=== PATIENT | female | born 2000 | race Caucasian/White ===

== ENCOUNTER 2019-09-18 23:37 | Emergency (ER) | payer OTHER ==
[~2019-09-18] VITALS: Ht 170.1 cm; Wt 121.6 kg
[~2019-09-18 23:37] MED LIST: AUGMENTIN 875 M1 TAB PO; CLARITIN10 MG PO
== END 2019-09-19 00:39 | disposition left against medical advice (07) ==
LOC: ED 23:37
DX: R10.9 Unspecified abdominal pain (principal); M54.5 Low back pain; Z53.21 Procedure and treatment not carried out due to patient leaving prior to being seen by health care provider

== ENCOUNTER 2019-10-15 14:55 | Emergency (ER) | payer OTHER | END 2019-10-15 16:00 | disposition home or self-care (01) | LOC: ED 14:55 | DX: S61.011A Laceration without foreign body of right thumb without damage to nail, initial encounter (principal); J45.909 Unspecified asthma, uncomplicated; F17.200 Nicotine dependence, unspecified, uncomplicated; Z88.8 Allergy status to other drugs, medicaments and biological substances; W01.0XXA Fall on same level from slipping, tripping and stumbling without subsequent striking against object, initial encounter; Y93.89 Activity, other specified; Y92.89 Other specified places as the place of occurrence of the external cause; Y99.8 Other external cause status ==

== ENCOUNTER 2022-09-16 07:29 | Emergency (ER) | payer OTHER ==
[~2022-09-16] VITALS: Ht 170.1 cm; Wt 124.7 kg
[2022-09-16] MEDS ORDERED: NYST SUSP PO (08:08)
== END 2022-09-16 08:19 | disposition home or self-care (01) ==
LOC: ED 07:29
DX: R68.2 Dry mouth, unspecified (principal); B37.0 Candidal stomatitis; J45.909 Unspecified asthma, uncomplicated

== ENCOUNTER 2023-03-15 02:40 | Emergency (ER) | payer OTHER ==
[~2023-03-15] VITALS: Ht 172.7 cm; Wt 124.7 kg
[~2023-03-15 02:40] MED LIST changes: +NYST SUSP PO
[2023-03-15 03:23] LABS: BASO % 0.5 % (0.0-1.0); EOS # 0.1 10*3/uL (0.0-0.4); EOS % 0.8 % (1.0-4.0); HEMATOCRIT 41.6 % (37.0-47.0); LYMPH % 27.1 % (27.0-41.0); MEAN CELL VOLUME 84.9 fl (81.0-99.0); MEAN CORPUSCULAR HGB 25.9 pg (27.0-31.0); MEAN CORPUSCULAR HGB CONC 30.5 g/dl (33.0-37.0); MEAN PLATELET VOLUME 9.3 fl (9.6-12.3); MONO # 0.3 10*3/uL (0.1-1.0); MONO % 3.7 % (3.0-9.0); NEUT % 67.8 % (47.0-73.0); PLATELET COUNT AUTOMATED 270 10*3/uL (130-400); WHITE BLOOD COUNT 7.4 10*3/uL (4.8-10.8)
[2023-03-15 03:39] LABS: ALKALINE PHOSPHATASE 80 U/L (46-116); CHLORIDE 110 mmol/L (98-107); POTASSIUM 3.6 mmol/L (3.4-5.1); SGPT/ALT 13 U/L (5-49); TOTAL PROTEIN 7.9 gm/dL (6.0-8.0)
[2023-03-15 03:40] LABS: BUN < 5 mg/dl (9-23)
[2023-03-15] MEDS ORDERED: WELLBUTRIN SR150 MG PO (05:13)
== END 2023-03-15 06:23 | disposition short-term general hospital (02) ==
LOC: ED 02:40
PROVIDERS: Emergency Medicine
DX: F10.129 Alcohol abuse with intoxication, unspecified (principal); S14.109A Unspecified injury at unspecified level of cervical spinal cord, initial encounter; R45.851 Suicidal ideations; J45.909 Unspecified asthma, uncomplicated; Z79.899 Other long term (current) drug therapy; Y90.7 Blood alcohol level of 200-239 mg/100 ml; V49.9XXA Car occupant (driver) (passenger) injured in unspecified traffic accident, initial encounter; Y93.89 Activity, other specified; Y92.410 Unspecified street and highway as the place of occurrence of the external cause; Y99.8 Other external cause status

== ENCOUNTER 2023-08-09 12:06 | Emergency (ER) | payer OTHER ==
[~2023-08-09 12:06] MED LIST changes: +WELLBUTRIN SR150 MG PO
== END 2023-08-09 13:20 | disposition left against medical advice (07) ==
LOC: ED 12:06
DX: R30.9 Painful micturition, unspecified (principal); Z53.21 Procedure and treatment not carried out due to patient leaving prior to being seen by health care provider

== ENCOUNTER 2023-10-27 15:44 | Emergency (ER) | payer OTHER ==
[~2023-10-27] VITALS: Ht 170.1 cm; Wt 108.9 kg
[2023-10-27 16:12] LABS: BASO % 0.4 % (0.0-1.0); EOS # 0.1 10*3/uL (0.0-0.4); EOS % 0.6 % (1.0-4.0); HEMATOCRIT 38.8 % (37.0-47.0); LYMPH # 1.9 10*3/uL (1.3-4.4); LYMPH % 23.2 % (27.0-41.0); MEAN CELL VOLUME 86.8 fl (81.0-99.0); MEAN CORPUSCULAR HGB 28.4 pg (27.0-31.0); MEAN CORPUSCULAR HGB CONC 32.7 g/dl (33.0-37.0); MEAN PLATELET VOLUME 9.8 fl (9.6-12.3); MONO # 0.5 10*3/uL (0.1-1.0); MONO % 6.1 % (3.0-9.0); NEUT # 5.7 10*3/uL (2.3-7.9); NEUT % 69.5 % (47.0-73.0); PLATELET COUNT AUTOMATED 239 10*3/uL (130-400); RED BLOOD COUNT 4.47 10*6/uL (4.10-5.10); RED CELL DISTRI WIDTH 13.7 % (0-14.5); WHITE BLOOD COUNT 8.3 10*3/uL (4.8-10.8)
[2023-10-27 16:16] LABS: BILIRUBIN Negative (Negative); BLOOD Negative (Negative); CLARITY Cloudy (Clear); COLOR Yellow (Yellow); GLUCOSE Negative (Negative); KETONE Negative (Negative); LEUKO ESTERASE Negative (Negative); NITRITE Negative (Negative); PH 6.5 (4.5-8.0); UROBILINOGEN 0.2 E.U./dl (0.0-1.0)
[2023-10-27 16:44] LABS: BACTERIA 2+; EPITHELIAL CELLS 21-30; RBC 16-20 rbc/hpf (0-2)
[2023-10-27 16:54] LABS: ALKALINE PHOSPHATASE 78 U/L (46-116); BUN 7 mg/dl (9-23); CHLORIDE 104 mmol/L (98-107); POTASSIUM 3.5 mmol/L (3.4-5.1); SGPT/ALT 12 U/L (5-49); TOTAL PROTEIN 7.1 gm/dL (6.0-8.0)
== END 2023-10-27 17:15 | disposition home or self-care (01) ==
LOC: ED 15:44
PROVIDERS: Physician Assistant Medical
DX: O20.0 Threatened abortion (principal); J45.909 Unspecified asthma, uncomplicated; Z79.899 Other long term (current) drug therapy; Z3A.08 8 weeks gestation of pregnancy